=== PATIENT | female | born 1950 | race Caucasian/White ===

== ENCOUNTER 2018-03-21 08:07 | Emergency (ER) | payer OTHER ==
[~2018-03-21] VITALS: Ht 162.6 cm; Wt 86.2 kg
--- NOTE | ~2018-03-21 | EKG ---
[address] [address] ELECTROCARDIOGRAM REPORT Name: CHANCE HUNTER Room #: PENDING SALE TO [facility] Esther#: [id number] Admission: 03/21/18 Attend Phys: Discharge: 03/21/18 Date of : 46 Report #: [id number] THIS REPORT FOR: //name// [facility] ED Test Date: 2018-03-21 Test Time: 08:20:42 Pat Name: CHANCE HUNTER Department: Room: Gender: F Tool Mechanic: ZAG : 1950 Requested By: Jackson Roberts Order Number: [id number] MD: Michael Hickey Measurements Intervals [place] Rate: 71 P: 75 WI: 168 QRS: 49 QRSD: 79 T: 32 QT: 390 QTc: 424 Interpretive Statements Sinus rhythm Normal tracing No previous ECG available for comparison Electronically Signed On 03-22-2018 7:59:42 CDT by Michael iHckey [email or web address] <ELECTRONICALLY SIGNED> By: Michael Hickey MD, [facility] 03/22/18 0759 0820 0820 Michael Hickey MD, FACC /EPI
[~2018-03-21 08:07] MED LIST: LISINOPRIL20 MG PO; METFORMIN HCL500 MG PO; PHENTERMINE PO
[2018-03-21] MEDS ORDERED: NEURONTIN 300300 M1 PO (08:17)
[2018-03-21] MEDS ORDERED: ASPIR 8181 MG PO (08:17)
[2018-03-21] MEDS ORDERED: CALCIUM 500 +1 EAC6 PO (08:18)
[2018-03-21] MEDS ORDERED: VITAMIN B-1100 M1 PO (08:18)
[2018-03-21] MEDS ORDERED: INDAPAMIDE2.5 MG PO (08:18)
[2018-03-21] MEDS ORDERED: GLUCOSAMINE HC500 MG PO (08:19)
[2018-03-21 08:41] LABS: ABSOLUTE NEUTROPHILS 4.6 thou/uL (1.4-8.2); BASOPHILS 0.9 % (0.0-2.0); EOSINOPHILS 3.1 % (0.0-3.0); HEMOGLOBIN 13.5 gm/dL (12.0-15.0); LYMPHOCYTES 27.3 % (24.0-44.0); MCH 32.1 pg (26.0-34.0); MCHC 34.6 g/dL (28.0-37.0); MCV 92.7 fL (80.0-100.0); MONOCYTES 5.9 % (1.0-8.0); PLATELET COUNT 234 thou/uL (150-400); POLYS 62.8 % (36.0-66.0); RBC 4.21 mil/uL (4.20-5.00); RDW 13.1 % (10.5-14.5); WBC 7.3 thou/uL (4.0-11.0)
[2018-03-21 08:55] LABS: ANION GAP 13 mmol/L (7-16); BUN 44 mg/dL (7-18); CALCIUM 10.4 mg/dL (8.5-10.1); CHLORIDE 102 mmol/L (98-107); CO2 23 mmol/L (21-32); CREATININE 1.9 mg/dL (0.6-1.0); GLUCOSE 115 mg/dL (74-106); POTASSIUM 5.3 mmol/L (3.5-5.1)
[2018-03-21 09:00] LABS: SODIUM 138 mmol/L (136-145)
[2018-03-21 09:03] LABS: URINE BILIRUBIN NEGATIVE (Negative); URINE BLOOD NEGATIVE (Negative); URINE CLARITY CLEAR; URINE COLOR YELLOW; URINE GLUCOSE-RANDOM* NEGATIVE (Negative); URINE KETONES NEGATIVE (Negative); URINE NITRITE-REFLEX NEGATIVE (Negative); URINE PROTEIN (DIPSTICK) NEGATIVE (Negative); URINE UROBILINOGEN 0.2 E.U./dl (0.2-1.0)
[2018-03-21 09:03] LABS: MAGNESIUM 1.5 mg/dL (1.8-2.4); SGOT 35 U/L (15-37); SGPT 31 U/L (30-65); TOTAL BILIRUBIN 0.8 mg/dL (<0.1-1.0); TROPONIN-I <0.06 ng/mL (<0.06)
[2018-03-21 09:07] LABS: URINE LEUKOCYTES-REFLEX TRACE (Negative)
[2018-03-21 10:25] VITALS: BP 140/67
== END 2018-03-21 10:31 | disposition home or self-care (01) ==
LOC: ER 08:07
PROVIDERS: Emergency Medicine
DX: E11.22 Type 2 diabetes mellitus with diabetic chronic kidney disease (principal); I12.9 Hypertensive chronic kidney disease with stage 1 through stage 4 chronic kidney disease, or unspecified chronic kidney disease; N18.9 Chronic kidney disease, unspecified; E87.5 Hyperkalemia; E83.42 Hypomagnesemia; R11.0 Nausea; R55 Syncope and collapse; Z79.899 Other long term (current) drug therapy; Z88.0 Allergy status to penicillin